=== PATIENT | male | born 1970 | race American Indian/Alaskan Native ===

== ENCOUNTER 2017-02-06 22:44 | Emergency (ER) | payer BC ==
[2017-02-06 23:06] VITALS: TEMP 97.4
[2017-02-06] MEDS ORDERED: Sodium Chloride 0.9% 1,000 ML IV ONE (23:15)
--- NOTE | 2017-02-06 23:19 | C.PDOC ---
History Of Present Illness 46 y.o male with no significant PMH presents to ED with complaints of not feeling well reports dizziness and very dry mouth. Patient admits to going out with friends eating and drinking alcohol, couple beers and shot of henessy and other mixed drink. Patient states he feels spinning sensation, and tried drinking water. He states he was unable to quench his thirst and feels mouth is really dry. He denies any headache, injury, chest pain, SOB, numbness or weakness. is at bedside Time Seen by Provider: 02/06/17 23:09 Chief Complaint (Nursing): Dizziness/Lightheaded History Per: Patient History/Exam Limitations: no limitations Onset/Duration Of Symptoms: Gradual Past Medical History Reviewed: Historical Data, Nursing Documentation, Vital Signs Vital Signs: Last Vital Signs Temp 97.4 F L 02/06/17 23:03 Pulse 98 H 02/07/17 00:35 Resp 20 02/07/17 00:35 BP 150/83 02/07/17 00:35 Pulse Ox 100 02/07/17 00:35 - Medical History PMH: No Chronic Diseases Other Surgeries: knee sx Family History: States: Unknown Family Hx - Social History Hx Alcohol Use: Yes Hx Substance Use: No - Immunization History Hx Tetanus Toxoid Vaccination: No Hx Influenza Vaccination: No Hx Pneumococcal Vaccination: No Review Of Systems Constitutional: Negative for: Fever, Weakness, Malaise Eyes: Negative for: Pain, Vision Change ENT: Positive for: Other (Very dry mouth) Cardiovascular: Negative for: Chest Pain, Palpitations Respiratory: Negative for: Cough, Shortness of Breath Gastrointestinal: Negative for: Nausea, Vomiting, Abdominal Pain, Diarrhea Musculoskeletal: Negative for: Neck Pain, Back Pain Neurological: Positive for: Dizziness. Negative for: Weakness, Numbness, Confusion, Headache Physical Exam - Physical Exam Appears: Non-toxic, No Acute Distress, Other (appears anxious and alcohol on breath) Skin: Normal Color, Warm, Dry Head: Atraumatic, Normacephalic Eye(s): bilateral: Normal Inspection, PERRL, EOMI Nose: Normal, No Flaring Oral Mucosa: Dry Tongue: Other (white film on anterior tongue, dry) Lips: Other (white dry and chapped, patient constantly licking lips) Teeth: Normal Dentition Throat: Normal, No Erythema, No Exudate, No Drooling, No Mass Neck: Normal ROM Chest: Symmetrical Cardiovascular: Rhythm Regular (tachycardic) Respiratory: Normal Breath Sounds, No Wheezing Gastrointestinal/Abdominal: Normal Exam, Soft, No Tenderness, No Distention, No Guarding Extremity: Bilateral: Atraumatic, Normal Color And Temperature, Normal ROM Neurological/Psych: Oriented x3, Normal Speech, Normal Motor, Normal Sensation Gait: Steady ED Course And Treatment - Laboratory Results Result Diagrams: 02/06/17 23:15 02/06/17 23:34 O2 Sat by Pulse Oximetry: 100 Medical Decision Making Medical Decision Making: Impression: 46 y.o male with dizziness and dry mouth after drinking Plan: * EKG * Labs * IV NS, Reglan Progress: EKG obtained and reviewed showing sinus tachycardia at 141 bpm no ischemic changes Labs reviewed showing hypokalemia and hypocalcemia. KCL PO was ordered Case discussed with ER attending who recommends order magnesium level and IV KCL Lab reviewed and magnesium in normal range. Upon reevaluation, patient resting comfortably and reports feeling better and denies any headache, dizziness, chest pain or SOB. Vital signs have improved patient is no longer tachycardic or hypertensive, stable for discharge. Case discussed with Dr Inman who agrees with discharge and give Rx KCL Disposition Counseled Patient/Family Regarding: Diagnosis, Need For Followup, Rx Given - Disposition Referrals: Non [facility] Provider, [Primary Care Provider] - [facility] [Outside] Disposition: HOME/ ROUTINE Disposition Time: 01:28 Condition: STABLE Additional Instructions: Your labs showed low potassium and were treated in ED Please take k-dur tablets daily with food and glass of water Follow up with your primary doctor in few days Prescriptions: Potassium Chloride [K-Dur 20] 20 meq PO DAILY #5 tab Instructions: Hypokalemia (DC) - POA Present On Arrival: Poor Glycemic Control - Clinical Impression Clinical Impression: Anxiety, Hypokalemia
[2017-02-06 23:36] LABS: BASO # 0.1 K/uL (0.0-0.2); BASO % 0.6 % (0.0-2.0); EOS # 0.1 K/uL (0.0-0.7); EOS % 0.8 % (0.0-4.0); HEMATOCRIT 43.3 % (35.0-51.0); LYMPH # 4.5 K/uL (1.0-4.3); LYMPH % 44.8 % (20.0-40.0); MEAN CELL VOLUME 87.8 fL (80.0-94.0); MEAN CORPUSCULAR HEMOGLOBIN 28.5 pg (27.0-31.0); MEAN CORPUSCULAR HGB CONC 32.5 g/dL (33.0-37.0); MEAN PLATELET VOLUME 8.2 fL (7.2-11.7); MONO # 1.1 K/uL (0.0-0.8); MONO % 11.3 % (0.0-10.0); NRBC % 0.1 % (0.0-2.0); RED CELL DISTRIBUTION WIDTH 14.2 % (11.5-14.5); WHITE BLOOD COUNT 10.1 K/uL (4.8-10.8)
[2017-02-06 23:44] LABS: CHLORIDE 96 mmol/L (98-107)
[2017-02-06 23:45] LABS: SODIUM 139 mmol/L (132-148)
[2017-02-06 23:47] LABS: ALB/GLOB RATIO 1.3 (1.0-2.1); ALKALINE PHOSPHATASE 80 U/L (38-126); ALT/SGPT 26 U/L (21-72); AST/SGOT 27 U/L (17-59); BILIRUBIN,TOTAL 0.2 mg/dL (0.2-1.3); BLOOD UREA NITROGEN 17 mg/dL (9-20); CARBON DIOXIDE 23 mmol/L (22-30); GFR AFRICAN-AMERICAN > 60; GLUCOSE,RANDOM 184 mg/dL (75-110); TOTAL PROTEIN 7.6 g/dL (6.3-8.3)
[2017-02-06 23:48] LABS: ALCOHOL SERUM 19 mg/dl (0-10); CALCIUM 8.4 mg/dl (8.6-10.4)
[2017-02-06 23:52] LABS: POTASSIUM 2.7 mmol/L (3.6-5.2)
[2017-02-06] MEDS ORDERED: Potassium Chloride 20 mEq ER Tab PO STA (23:59)
[2017-02-07] MEDS ORDERED: Potassium Chloride 20 mEq ER Tab PO ONE (00:05)
[2017-02-07] MEDS ORDERED: Potassium Chloride 10 mEq 100 ML IV ONE (00:07)
[2017-02-07 00:09] VITALS: O2SAT 100
[2017-02-07] MEDS ORDERED: Potassium Chloride 10 mEq 100 ML IVPB ONE (00:12)
[2017-02-07 00:16] LABS: RBC URINE 1 /hpf (0-3); URINE BILIRUBIN NEGATIVE (NEGATIVE); URINE BLOOD NEGATIVE (NEGATIVE); URINE COLOR Yellow (YELLOW); URINE GLUCOSE (UA) NORMAL (Normal); URINE HYALINE CAST 0-2 /lpf (0-2); URINE KETONE TRACE mg/dL (NEGATIVE); URINE LEUKOCYTE ESTERASE TRACE Leu/uL (Negative); URINE PROTEIN NEGATIVE (NEGATIVE); URINE UROBILINOGEN NORMAL mg/dL (0.2-1.0); WBC URINE 1 /hpf (0-5)
[2017-02-07 00:35] VITALS: BP 150/83; PULSE 98; RESP 20
== END 2017-02-07 02:00 | disposition home or self-care (01) ==
LOC: SUPCPDRO 22:44 → C.ER 22:44
DX: F41.9 Anxiety disorder, unspecified (principal); E87.6 Hypokalemia
CPT/HCPCS: 80053; 81001; 83735; 85025; 96374; 99285; G0480; J3480; J7040